=== PATIENT | male | born 1945 | race Caucasian/White ===

== ENCOUNTER 2018-05-11 11:00 | Outpatient (RCR) | payer OTHER, MEDICARE ==
[~2018-05-11 11:00] MED LIST: ASPIRIN EC81 MG PO; CRESTOR20 MG PO; METFORMIN500 MG PO; SOTALOL HCL80 MG PO; TYLENOL 500MG TAB PO
== END 2018-06-07 10:35 | disposition home or self-care (01) | DRG 556 ==
LOC: PT 11:00
DX: M25.559 Pain in unspecified hip (principal); Z96.642 Presence of left artificial hip joint; R53.1 Weakness

== ENCOUNTER 2022-01-19 13:23 | Emergency (ER) | payer OTHER, MEDICARE ==
[~2022-01-19] VITALS: Ht 193 cm; Wt 131.8 kg
[2022-01-19] VITALS (8 sets, daily range): BP systolic 102–120; BP diastolic 52–64
[2022-01-19] MEDS ORDERED: GABAPENTIN300 M2 PO (14:01)
[2022-01-19] MEDS ORDERED: DENTA (14:02)
[2022-01-19] MEDS ORDERED: SERTRALINE50 MG PO (14:03)
[2022-01-19] MEDS ORDERED: MAGNESIUM OXID400 M1 (14:04)
[2022-01-19 14:37] LABS: HEMATOCRIT 43.3 % (39.0-50.0); HEMOGLOBIN 13.7 g/dl (14.0-18.0); IMMATURE GRANULOCYTES 0.1 % (0.0-5.0); MEAN CORPUSCULAR HGB 28.5 pG CALC (26.0-32.0); MEAN CORPUSCULAR HGB CONC 31.6 g/dL CAL (32.0-36.0); NEUT# 7.12 thou/uL (1.82-7.42); RED BLOOD COUNT 4.81 mill/uL (4.70-6.10); RED CELL DISTRI WIDTH 13.7 % (11.5-15.5)
[2022-01-19 14:45] LABS: ALBUMIN 3.8 g/dL (3.2-5.0); ALKALINE PHOSPHATASE 77 u/l (38-126); ANION GAP 11 (6-22 (CALC)); BILIRUBIN, TOTAL 0.5 mg/dL (0.0-1.4); BUN 19 mg/dL (8-23); BUN/CREATININE RATIO 18 (12-20 (CALC)); CARBON DIOXIDE 32 mmol/l (22-30); CHLORIDE 99 mmol/l (95-108); CREATININE 1.1 mg/dL (0.7-1.3); GFR FOR AFR.AMER. > 60 ML/MIN (>=60 (CALC)); GFR OTHER RACES > 60 ML/MIN (>=60 (CALC)); POTASSIUM 3.8 mmol/l (3.5-5.1); SGOT/AST 28 u/l (19-48); SODIUM 139 mmol/l (137-146); TOTAL PROTEIN 6.6 g/dL (6.3-8.2)
[2022-01-19 15:05] LABS: MYOGLOBIN 48 ng/mL (0 - 121)
[2022-01-19] MEDS ORDERED: MECLIZINE 2525 MG PO (15:18)
== END 2022-01-19 15:54 | disposition home or self-care (01) | DRG 90 ==
LOC: ED 13:23
PROVIDERS: Nurse Practitioner
DX: S06.0X0A Concussion without loss of consciousness, initial encounter (principal); W18.39XA Other fall on same level, initial encounter; R42 Dizziness and giddiness

== ENCOUNTER 2022-06-16 12:26 | Emergency (ER) | payer OTHER, MEDICARE ==
[~2022-06-16] VITALS: Ht 193 cm; Wt 134.7 kg
[2022-06-16] VITALS (22 sets, daily range): BP systolic 87–136; BP diastolic 49–102
[~2022-06-16 12:26] MED LIST changes: +DENTA; +GABAPENTIN300 M2 PO; +MAGNESIUM OXID400 M1; +MECLIZINE 2525 MG PO; +SERTRALINE50 MG PO
[2022-06-16] MEDS ORDERED: MIDODRINE5 MG PO (13:23)
[2022-06-16] MEDS ORDERED: TAMSULOSIN HCL0.4 MG PO (13:26)
[2022-06-16 14:02] LABS: EOS% 11.7 % (0-8); HEMATOCRIT 46.3 % (39.0-50.0); HEMOGLOBIN 14.4 g/dl (14.0-18.0); IMMATURE GRANULOCYTES 0.5 % (0.0-5.0); LYMPH% 18.1 % (15-41); MEAN CELL VOLUME 88.5 fL CALC (80.0-100.0); MEAN CORPUSCULAR HGB 27.5 pG CALC (26.0-32.0); MEAN CORPUSCULAR HGB CONC 31.1 g/dL CAL (32.0-36.0); MONO% 6.5 % (2-13); NEUT# 9.16 thou/uL (1.82-7.42); NEUT% 62.2 % (42-76); RED BLOOD COUNT 5.23 mill/uL (4.70-6.10); RED CELL DISTRI WIDTH 12.9 % (11.5-15.5)
[2022-06-16 14:14] LABS: ALBUMIN 4.2 g/dL (3.2-5.0); ALKALINE PHOSPHATASE 69 u/l (38-126); ANION GAP 11 (6-22 (CALC)); BUN 21 mg/dL (8-23); BUN/CREATININE RATIO 19 (12-20 (CALC)); CARBON DIOXIDE 33 mmol/l (22-30); CHLORIDE 100 mmol/l (95-108); CREATININE 1.1 mg/dL (0.7-1.3); GFR FOR AFR.AMER. > 60 ML/MIN (>=60 (CALC)); GFR OTHER RACES > 60 ML/MIN (>=60 (CALC)); POTASSIUM 4.2 mmol/l (3.5-5.1); SGOT/AST 23 u/l (19-48); SODIUM 139 mmol/l (137-146); TOTAL PROTEIN 6.9 g/dL (6.3-8.2)
[2022-06-16 14:20] LABS: BILIRUBIN, TOTAL 0.8 mg/dL (0.2-1.3)
[2022-06-16 16:39] LABS: URINE BILIRUBIN - DIPSTICK NEGATIVE (NEGATIVE); URINE BLOOD DIPSTICK MODERATE (NEGATIVE); URINE COLOR YELLOW; URINE GLUCOSE - DIPSTICK NEGATIVE (NEGATIVE); URINE KETONE NEGATIVE (NEGATIVE); URINE LEUK ESTERASE NEGATIVE (NEGATIVE); URINE PH 5.5 (4.5-8.0); URINE PROTEIN - DIPSTICK NEGATIVE (NEG-TRACE); URINE SPECIFIC GRAVITY >=1.030
[2022-06-16 16:41] LABS: URINE NITRITE - DIPSTICK NEGATIVE (Negative)
== END 2022-06-16 18:15 | disposition home or self-care (01) | DRG 312 ==
LOC: ED 12:26
PROVIDERS: Family Medicine
DX: R55 Syncope and collapse (principal); E11.9 Type 2 diabetes mellitus without complications; I48.91 Unspecified atrial fibrillation